=== PATIENT | female | born 1985 | race Asian ===

== ENCOUNTER 2017-10-16 11:57 | Emergency (ER) | payer MEDICAID, OTHER ==
[~2017-10-16] VITALS: Ht 162.6 cm; Wt 44.4 kg
[~2017-10-16 11:57] MED LIST: [UNRECOGNIZED DRUG - OTHER] IVPB
[2017-10-16 12:10] VITALS: Ht 162.6 cm; Wt 44.4 kg
[2017-10-16] MEDS ORDERED: HYDROCODONE/APAP (5/325) TAB PO ONE (14:30)
--- NOTE | 2017-10-16 14:47 | ERD ---
ER Documentation Chief Complaint Chief Complaint abdominal pain x10 (intermittent) HPI This is a 32-year-old female who presents emergency department today complaining of intermittent abdominal pain for the past 10 days. She states that it went away for a while and then returned. Denies any dysuria, fevers or chills, vomiting. States that she only has pain but has not taken any medication because "she does not know what it is". She is currently on her menstrual cycle. ROS All systems reviewed and are negative except as per history of present illness. Medications Home Meds Active Scripts Acetaminophen* (Tylophen*) 500 Mg Capsule, 1 CAP PO Q6H Y for PAIN AND OR ELEVATED TEMP, #30 CAP Prov:JAMARCUS CARLTON PA-C 10/16/17 Ibuprofen* (Motrin*) 600 Mg Tab, 600 MG PO Q6, #30 TAB Prov:JAMARCUS CARLTON PA-C 10/16/17 Ertapenem Sodium* (Invanz*) 1 G/Vial Vial, 1 GM IVPB Q24H for 10 Days, VIAL DILUTE IN NS Prov:VARUN DARDEN 09/05/14 Allergies Allergies: Coded Allergies: No Known Allergy (Unverified , 08/20/14) PMhx/Soc History of Surgery: Yes ( 08/26/14) Anesthesia Reaction: No Hx Neurological Disorder: No Hx Respiratory Disorders: No Hx Cardiac Disorders: No Hx Psychiatric Problems: No Hx Miscellaneous Medical Probl: No Hx Alcohol Use: No Hx Substance Use: No Hx Tobacco Use: No Smoking Status: Never smoker Physical Exam Vitals Vital Signs Date Time Temp Pulse Resp B/P Pulse Ox O2 Delivery O2 Flow Rate FiO2 10/16/17 12:10 97.8 100 18 115/81 98 Physical Exam Const: non toxic appearing Head: Atraumatic Eyes: Normal Conjunctiva ENT: Normal External Ears, Nose and Mouth. Neck: Full range of motion..~ No meningismus. Resp: Clear to auscultation bilaterally Cardio: Regular rate and rhythm, no murmurs Abd: Soft,periumbilical and right lower quadrant tenderness non distended. Normal bowel sounds Skin: No petechiae or rashes Back: No midline or flank tenderness Ext: No cyanosis, or edema Neur: Awake and alert Psych: Normal Mood and Affect Result Diagram: 10/16/17 1443 10/16/17 1443 Results 24 hrs Laboratory Tests Test 10/16/17 14:40 10/16/17 14:43 Urine Color STRAW Urine Clarity CLEAR Urine pH 7.0 Urine Specific [place] 1.006 Urine Ketones NEGATIVEmg/dL Urine Nitrite NEGATIVEmg/dL Urine Bilirubin NEGATIVEmg/dL Urine Urobilinogen NEGATIVEmg/dL Urine Leukocyte Esterase NEGATIVELeu/ul Urine Microscopic RBC 1/HPF Urine Microscopic WBC 0/HPF Urine Hemoglobin 2+mg/dL Urine Glucose NEGATIVEmg/dL Urine Total Protein NEGATIVEmg/dl White Blood Count 8.210^3/ul Red Blood Count 4.8210^6/ul Hemoglobin 13.9g/dl Hematocrit 43.0% Mean Corpuscular Volume 89.2fl Mean Corpuscular Hemoglobin 28.8pg Mean Corpuscular Hemoglobin Concent 32.3g/dl Red Cell Distribution Width 11.9% Platelet Count 81704^3/UL Mean Platelet Volume 9.9fl Neutrophils % 69.5% Lymphocytes % 23.9% Monocytes % 5.3% Eosinophils % 0.4% Basophils % 0.5% Nucleated Red Blood Cells % 0.0/100WBC Neutrophils # 5.710^3/ul Lymphocytes # 2.010^3/ul Monocytes # 0.410^3/ul Eosinophils # 0.010^3/ul Basophils # 0.010^3/ul Nucleated Red Blood Cells # 0.010^3/ul Sodium Level 144mmol/L Potassium Level 3.8mmol/L Chloride Level 109mmol/L Carbon Dioxide Level 22mmol/L Anion Gap 17 Blood Urea Nitrogen 10mg/dl Creatinine 0.69mg/dl Glucose Level 85mg/dl Calcium Level 10.0mg/dl Total Bilirubin 0.6mg/dl Direct Bilirubin 0.00mg/dl Indirect Bilirubin 0.6mg/dl Aspartate Amino Transf (AST/SGOT) 21IU/L Alanine Aminotransferase (ALT/SGPT) 32IU/L Alkaline Phosphatase 71IU/L Total Protein 8.3g/dl Albumin 4.8g/dl Globulin 3.50g/dl Albumin/Globulin Ratio 1.37 Lipase 57U/L Current Medications Medications (Trade) Dose Ordered Sig/Diaz Route PRN Reason Start Time Stop Time Status Last Admin Dose Admin Acetaminophen/ Hydrocodone Bitart (Eagle (5/325)) 1 tab ONCE ONCE PO 10/16/17 14:30 10/16/17 14:31 DC 10/16/17 14:39 DIAGNOSTIC IMAGING REPORT Patient: TAMARA ONEILL : 1985 Age: 32 Sex: F [id number] DOS: 10/16/17 1410 Ordering MD: JAMARCUS CARLTON PA-C Location: E Room/Bed: PROCEDURE: CT ABDOMEN AND PELVIS WITHOUT CONTRAST. CLINICAL INDICATION: Abdominal pain TECHNIQUE: CT scan of the abdomen and pelvis without contrast was performed on a multidetector high-resolution CT scanner. The patient was scanned without intravenous contrast. Coronal and sagittal reformatted images were obtained from the axial source images. Images were reviewed on a high-resolution PACS workstation. The total exam CTDI equals 4.1 mGy and the total exam DLP equals 228 mGy-cm. One or more of the following dose reduction techniques were used: Automated exposure control. Adjustment of the mA and/or kV according to patient size. Use of iterative reconstruction technique. DICOM images are available COMPARISON: None FINDINGS: CT abdomen: The lung bases are clear. The heart size is within limits. There is no significant pericardial effusion. Hepatic morphology is within normal limits. No gross contour deforming masses. The gallbladder is within normal limits. No evidence of intrahepatic or extrahepatic biliary dilatation. The spleen and pancreas are within normal limits. Both adrenal glands are within normal limits. Both kidneys are in normal anatomic position. No evidence of obstruction or hydronephrosis. No gross renal/ureteric calculi. The visualized GI tract demonstrate normal caliber loops of small and large bowel. No evidence of bowel obstruction. The appendix is within normal limits. The unenhanced aorta is unremarkable. No significant retroperitoneal lymphadenopathy. CT pelvis: The bladder is is identified, with thickening of the haley. The uterus otherwise appears to be within normal limits. The rectosigmoid colon is within normal limits. No significant free fluid. No pelvic lymphadenopathy. IMPRESSION: 1. No evidence of bowel obstruction. The appendix is within normal limits. 2. Thickening of the wall of the bladder, which may be secondary to infectious versus inflammatory cystitis. Recommend correlation with urinalysis. 3. No free fluid or free air. No gross focal fluid collections. Remainder of the unenhanced CT scan abdomen/pelvis is unremarkable. RPTAT: AAPP Physician Kelsey Date Time Electronically viewed and signed by Physician Kelsey on 10/16/2017 15:10 JL/ CC: JAMARCUS CARLTON PA-C Procedures/MDM This is a 32-year-old female who presents the emergency department today complaining of intermittent abdominal pain for the past 10 days worse over the past couple of days. On physical exam patient has periumbilical right lower quadrant tenderness. Patient has no other symptoms however given her location of pain I did obtain laboratory workup as well as imaging. Laboratory workup shows no other white blood cell count. She is not anemic. Platelets are within normal limits. Electrolytes are within normal limits. Glucose is within normal limits. Liver enzymes are within normal limits. Lipase within normal limits. UA is negative for infection Urine test is negative Urine was sent for culture given CT results CT abdomen pelvis non contrast shows no evidence of bowel obstruction. Appendix is within normal limits. There is thickening of the wall of the bladder which may be secondary to infectious versus inflammatory cystitis. There is no free fluid or free air. Patient was given Eagle for pain Patient has abdominal pain of uncertain etiology. Low suspicion for acute surgical abdomen. Patient is afebrile and otherwise well-appearing. She has no other symptoms. Patient was given a prescription for Tylenol Motrin for home. Patient was instructed to follow-up with a primary care doctor for referral to urology specialist to further evaluate her bladder. I will not treat her for urinary tract infection at this time is there is no evidence of it. At this time the patient is stable for discharge and outpatient management. Patient should follow up with their PCP in the next 1-2 days. They may return to the emergency department sooner for any persistent or worsening of symptoms. Patient understood and agreed with the plan. Discussed the patient with Dr. Mills and he is in agreement with the plan. Departure Diagnosis: Primary Impression: Abdominal pain Abdominal location: periumbilical Qualified Code: R10.33 - Periumbilical abdominal pain Condition: Fair MYLENE CARLTONH M. PA-C Oct 16, 2017 14:47
[2017-10-16 14:50] LABS: ADD UMIC YES; UR ASCORBIC ACID NEGATIVE (NEGATIVE); UR BILIRUBIN (Dip) NEGATIVE (NEGATIVE); UR BLOOD (Dip) 2+ mg/dL (NEGATIVE); UR CLARITY CLEAR (CLEAR); UR COLOR STRAW (YELLOW); UR GLUCOSE (Dip) NEGATIVE (NEGATIVE); UR KETONES (Dip) NEGATIVE (NEGATIVE); UR LEUKOCYTE ESTERASE (Dip) NEGATIVE Leu/ul (NEGATIVE); UR NITRITE (Dip) NEGATIVE (NEGATIVE); UR RBC 1 /HPF (0-5); UR SPECIFIC GRAVITY (Dip) 1.006 (1.003-1.030); UR TOTAL PROTEIN (Dip) NEGATIVE (NEGATIVE); UR UROBILINOGEN (Dip) NEGATIVE (NEGATIVE)
[2017-10-16 14:56] LABS: BASOPHILS % 0.5 % (0.0-2.0); EOSINOPHILS % 0.4 % (0.0-7.0); HEMOGLOBIN 13.9 g/dl (12.0-16.0); LYMPHOCYTES % 23.9 % (15.0-51.0); MEAN CORPUSCULAR HEMOGLOBIN 28.8 pg (29.0-33.0); MEAN CORPUSCULAR HGB CONC 32.3 g/dl (32.0-37.0); MEAN CORPUSCULAR VOLUME 89.2 fl (82.0-101.0); MEAN PLATELET VOLUME 9.9 fl (7.4-10.4); MONOCYTE # 0.4 10^3/ul (0.3-0.9); MONOCYTES % 5.3 % (0.0-11.0); NEUTROPHIL # 5.7 10^3/ul (1.6-7.5); NEUTROPHILS % 69.5 % (39.0-77.0); PLATELET COUNT 297 10^3/UL (140-415); RED BLOOD COUNT 4.82 10^6/ul (4.20-5.40); RED CELL DISTRIBUTION WIDTH 11.9 % (11.5-14.5); WHITE BLOOD COUNT 8.2 10^3/ul (4.8-10.8)
--- NOTE | 2017-10-16 15:10 | RADRPT ---
PROCEDURE: CT ABDOMEN AND PELVIS WITHOUT CONTRAST. CLINICAL INDICATION: Abdominal pain TECHNIQUE: CT scan of the abdomen and pelvis without contrast was performed on a multidetector hig h-resolution CT scanner. The patient was scanned without intravenous contrast. Coronal and sagittal reformatted images were obtained from the axial source images. Images were reviewed on a high-resol iMove PACS workstation. The total exam CTDI equals 4.1 mGy and the total exam DLP equals 228 mGy-cm. One or more of the following dose reduction techniques were used: Automated exposure control. Adjustment of the mA and/or kV according to patient size. Use of iterative reconstruction technique. DICOM images are available COMPARISON: None FINDINGS: CT abdomen: The lung bases are clear. The heart size is within limits. There is no significant pericardial effus ion. Hepatic morphology is within normal limits. No gross contour deforming masses. The gallbladder is wi thin normal limits. No evidence of intrahepatic or extrahepatic biliary dilatation. The spleen and pancreas are within normal limits. Both adrenal glands are within normal limits. Both kidneys are in normal anatomic position. No evidence of obstruction or hydronephrosis. No gross renal/ureteric calculi. The visualized GI tract demonstrate normal caliber loops of small and large bowel. No evidence of dmitri wel obstruction. The appendix is within normal limits. The unenhanced aorta is unremarkable. No significant retroperitoneal lymphadenopathy. CT pelvis: The bladder is is identified, with thickening of the haley. The uterus otherwise appears to be withi n normal limits. The rectosigmoid colon is within normal limits. No significant free fluid. No pelvi c lymphadenopathy. IMPRESSION: 1. No evidence of bowel obstruction. The appendix is within normal limits. 2. Thickening of the wall of the bladder, which may be secondary to infectious versus inflammatory c ystitis. Recommend correlation with urinalysis. 3. No free fluid or free air. No gross focal fluid collections. Remainder of the unenhanced CT scan abdomen/pelvis is unremarkable. RPTAT: AAPP Physician Kelsey Date Time Electronically viewed and signed by Physician Kelsey on 10/16/2017 15:10 JL/
[2017-10-16 15:18] LABS: ALBUMIN 4.8 g/dl (3.3-4.9); ALBUMIN/GLOBULIN RATIO 1.37; BILIRUBIN,INDIRECT 0.6 mg/dl (0-1.1); BILIRUBIN,TOTAL 0.6 mg/dl (0.2-1.3); CREATININE 0.69 mg/dl (0.44-1.00); POTASSIUM 3.8 mmol/L (3.5-5.1); TOTAL PROTEIN 8.3 g/dl (6.1-8.1)
[2017-10-16] MEDS ORDERED: ACET500C5 PO (16:04)
[2017-10-16] MEDS ORDERED: IBUP-1542 PO (16:04)
[2017-10-16 16:34] VITALS: BP 126/86; PULSE 87; RESP 18; TEMP 98.8
== END 2017-10-16 16:34 | disposition home or self-care (01) ==
LOC: FTE 11:57
DX: R10.33 Periumbilical pain (principal); R10.2 Pelvic and perineal pain
CPT/HCPCS: 36415; 74176; 80053; 81001; 83690; 85025; 87086; Z7502; Z7610

== ENCOUNTER 2019-06-12 20:15 | Outpatient (CLI) | payer OTHER ==
[~2019-06-12] VITALS: Ht 167.6 cm; Wt 49.3 kg
[~2019-06-12 20:15] MED LIST changes: +ACET500C5 PO; +IBUP-1542 PO
--- NOTE | 2019-06-12 20:54 | HP ---
Date/Time of Note Date/Time of Note DATE: 06/12/19 TIME: 20:52 OB - History Hx of Present Free Text/Dictation 33-year-old 2 para 1 with at 32 weeks and 4 days with due date August 03, 2019 who presents to labor and delivery due to loss of fluid per vagina only one time at 5 PM today. She denies loss of fluid per vagina since then. She denies uterine contractions cramping abdominal pain or vaginal bleeding. She reports good movements. She has history of previous delivery at full-term. Past Family/Social History * Past Medical, Surgical, Family and Obstetric Histories reviewed from chart. OB Admission Exam Physical Exam HEENT: WNL Heart: Rhythm Normal Lungs: Clear, Equal Abdomen: WNL Extremities: Normal Reflexes: Normal OB Assessment/Plan Other Assessment: at 32 weeks and 4 days rule out premature rupture of membrane Other plan: Plan is a speculum exam check nitrazine check ROM plus ultrasound for YULIYA and EFW due to fundal height is smaller than gestational age MCKENZIE DAVEY MD Jun 12, 2019 20:54
[2019-06-12 21:34] VITALS: BP 105/63; PULSE 85; RESP 17; Ht 167.6 cm; Wt 49.3 kg
--- NOTE | 2019-06-12 22:30 | TRIAGE ---
OB Triage Datetime Report Generated by CPN: 06/12/2019 22:30 Datetime: 06/12/2019 22:05 Contraction Comments: TOCO REMOVED Comments: US REMOVED Datetime: 06/12/2019 22:00 Labor Evaluation Frequency: OCCASIONAL Monitor Mode: External Duration (sec)2399: 60-80 Quality: Mild Resting Tone [place]: Relaxed Contraction Comments: PT DENIES FEELING UC'S Heart Rate FHR Baseline Rate: 140 Monitor Mode: External US Variability: Moderate 6-25 bpm Accelerations: 15X15 Decelerations: None Category: Category I Datetime: 06/12/2019 21:00 Labor Evaluation Frequency: OCCASIONAL Monitor Mode: External Duration (sec)2399: 60 Quality: Mild Resting Tone [place]: Relaxed Contraction Comments: PT DOES NOT FEEL UC'S Heart Rate FHR Baseline Rate: 145 Monitor Mode: External US Variability: Moderate 6-25 bpm Accelerations: 15X15 Decelerations: None Category: Category I Datetime: 06/12/2019 20:55 Vaginal Exam Pool: Negative Nitrazine: Negative Datetime: 06/12/2019 20:40 Stage of : OB Triage Assessment Type: Triage Maternal Assessment Level of Consciousness: Keenly Alert, Responsive DTR's/Clonus: DTRs 2+; No Clonus Headache: Denies Blurred Vision: No Respiratory Effort: Unlabored; Regular Rhythm; Equal Expansion Breath Sounds, Left: Clear and Equal Breath Sounds, Right: Clear and Equal Nausea/Vomiting: Denies RUQ Epigastric Pain: Denies Lower Extremities Edema: None Degree: None Upper Extremities Edema: None Degree: None Facial Edema: None Temperature Route: Oral Fall Risk Assessment History of Falling: (0) No Secondary Diagnosis: (0) No Ambulatory Aid: (0) Bedrest/Nurse Assist IV Therapy: (0) No Gait: (0) Normal/Bedrest/Immobile Mental Status: (0) Oriented to Own Ability Fall Score: 0 Fall Risk Score Definition: No Risk: No action required Pain Assessment Pain Scale: 0 Pain Presence: None/Denies Pain Type: N/A Datetime: 06/12/2019 20:32 Time of Arrival: 06/12/2019 20:05 EGA: 32.4 Arrived By: Ambulatory Arrived From: Emergency Dept Chief Complaint: LEAKING Movement: Present Contractions: Denies/Absent Rupture of Membranes: Unsure Vaginal Discharge: Present Recent Sexual Intercouse: Denies Abdominal Trauma: Not Applicable Patient Complaints: Other Initial Plan: EFM
== END 2019-06-12 22:20 | disposition home or self-care (01) ==
LOC: OBT 20:15 → L-D 20:18 → OBT 22:20
PROVIDERS: ATTEND Specialist
DX: O60.03 Preterm labor without delivery, third trimester (principal); Z3A.32 32 weeks gestation of pregnancy
CPT/HCPCS: 76815; 76818; 84112; Z7500; G0463

== ENCOUNTER 2019-07-19 12:29 | Inpatient (IN) | payer OTHER ==
[~2019-07-19] VITALS: Ht 167.6 cm; Wt 49.4 kg
[2019-07-19 12:56] VITALS: Ht 167.6 cm; Wt 49.4 kg
[2019-07-19 12:57] VITALS: BP 114/65; PULSE 114; RESP 18
[2019-07-19] MEDS ORDERED: MISOPROSTOL 200 MCG TAB PR PRN ×2 (13:30→21:30)
[2019-07-19] MEDS ORDERED: METHYLERGONOVINE 0.2 MG INJ IM PRN ×2 (13:30→21:30)
[2019-07-19] MEDS ORDERED: CARBOPROST 250 MCG INJ IM PRN ×2 (13:30→21:30)
[2019-07-19] MEDS ORDERED: OXYTOCIN 30 UNITS/LR 500 ML IV PRN ×2 (13:30→21:30)
[2019-07-19] MEDS ORDERED: CEFAZOLIN 2 GM/50 ML (PMX) 50 ML IVPB SCH (13:30)
[2019-07-19] MEDS ORDERED: OXYTOCIN 30 UNITS/LR 500 ML IV SCH ×2 (13:30→21:15)
[2019-07-19] MEDS: LACTATED RINGER'S 1,000 ML IV SCH ×2 (14:03→16:16)
[2019-07-19] MEDS ORDERED: morphine SULFATE/PF (10 MG/10 ML) INJ ONE (16:45)
[2019-07-19] MEDS ORDERED: FENTAnyl 50 MCG/ML VIAL ONE (16:45)
[2019-07-19] MEDS ORDERED: DEXAMETHASONE 4 MG/ML 1 ML INJ ONE (16:49)
[2019-07-19] MEDS ORDERED: PHENYLephrine (100 MCG/ML) 10ML SYG ONE (16:49)
[2019-07-19] MEDS ORDERED: ONDANSETRON 4 MG INJ ONE (16:50)
[2019-07-19] MEDS ORDERED: HYDROmorphONE 0.5 MG/0.5 ML SYG IV PRN ×2 (18:00)
[2019-07-19] MEDS ORDERED: KETOROLAC 30 MG INJ IV PRN (18:00)
[2019-07-19] MEDS ORDERED: ONDANSETRON 4 MG INJ IV PRN ×2 (18:00→21:30)
[2019-07-19] MEDS ORDERED: DIPHENHYDRAMINE 50 MG INJ IV PRN ×2 (18:00→21:30)
[2019-07-19] MEDS ORDERED: ZOLPIDEM 5 MG TAB PO PRN ×2 (18:00→21:30)
[2019-07-19] MEDS ORDERED: NALOXONE (0.4 MG/ML) INJ IV PRN (18:00)
[2019-07-19 21:15] VITALS: BP 110/69; PULSE 70; RESP 18
[2019-07-19] MEDS ORDERED: LACTATED RINGER'S 1,000 ML IV SCH (21:15)
[2019-07-19] MEDS ORDERED: OXYCODONE/ACETAMINOPHEN (5/325) TAB PO PRN (21:30)
[2019-07-19] MEDS ORDERED: LANOLIN HPA 1 PKT TOP PRN (21:30)
[2019-07-19 21:45] VITALS: BP 112/70; PULSE 72; RESP 20
[2019-07-20 00:16] VITALS: BP 111/53; PULSE 66; RESP 18
[2019-07-20 04:35] VITALS: BP 96/56; PULSE 75; RESP 18
[2019-07-20] MEDS: IBUPROFEN 600 MG TAB PO SCH ×5 (06:00→23:49)
[2019-07-20] MEDS ORDERED: LACTATED RINGER'S 1,000 ML IV SCH (07:30)
[2019-07-20 07:50] VITALS: BP 99/66; PULSE 72; RESP 16
[2019-07-20] MEDS: SENNA/DOCUSATE NA (8.6MG/50MG) TAB PO SCH ×2 (09:17→22:22)
[2019-07-20 16:06] VITALS: BP 112/68; PULSE 84; RESP 17
[2019-07-20] MEDS: ASCORBIC ACID 500 MG TAB PO SCH (17:14)
[2019-07-20] MEDS: FERROUS SULFATE (EC) 325 MG TAB PO SCH (17:14)
[2019-07-20] MEDS: OXYCODONE/ACETAMINOPHEN (5/325) TAB PO PRN (17:59)
[2019-07-20 20:04] VITALS: BP 101/63; PULSE 78; RESP 20
[2019-07-21 04:20] VITALS: BP 116/70; PULSE 51; RESP 20
[2019-07-21] MEDS: IBUPROFEN 600 MG TAB PO SCH ×4 (05:44→23:34)
[2019-07-21 07:30] VITALS: BP 110/68; PULSE 74; RESP 16
[2019-07-21] MEDS: SENNA/DOCUSATE NA (8.6MG/50MG) TAB PO SCH ×2 (08:42→21:45)
[2019-07-21] MEDS: FERROUS SULFATE (EC) 325 MG TAB PO SCH (08:42)
[2019-07-21] MEDS: ASCORBIC ACID 500 MG TAB PO SCH (10:18)
[2019-07-21] MEDS: OXYCODONE/ACETAMINOPHEN (5/325) TAB PO PRN (15:12)
[2019-07-21 15:31] VITALS: BP 126/83; PULSE 98; RESP 17
[2019-07-21 20:15] VITALS: BP 114/72; PULSE 71; RESP 18
[2019-07-22 04:00] VITALS: BP 109/75; PULSE 80; RESP 18
[2019-07-22] MEDS: IBUPROFEN 600 MG TAB PO SCH ×2 (05:44→13:17)
[2019-07-22 08:30] VITALS: BP 111/70; PULSE 68; RESP 18
[2019-07-22] MEDS ORDERED: DIPHTH/TET/ACEL PERTUSS (ADULT) 0.5 ML VIAL IM* ONE (09:00)
[2019-07-22] MEDS: OXYCODONE/ACETAMINOPHEN (5/325) TAB PO PRN (09:27)
[2019-07-22] MEDS: FERROUS SULFATE (EC) 325 MG TAB PO SCH (09:27)
[2019-07-22] MEDS: ASCORBIC ACID 500 MG TAB PO SCH (09:27)
[2019-07-22] MEDS: SENNA/DOCUSATE NA (8.6MG/50MG) TAB PO SCH (09:27)
== END 2019-07-22 16:22 | disposition home or self-care (01) | DRG 786 ==
LOC: OBT 12:29 → L-D 12:30 → OBT 13:10 → L-D 17:04 → MS1 21:06 → PP1 07-20 20:59
PROVIDERS: ADMIT Specialist; ATTEND Specialist
PROC: 10D00Z1 Extraction of Products of Conception, Low, Open Approach (ICD-10-PCS; principal; 2019-07-19 14:00)
DX: O26.613 Liver and biliary tract disorders in pregnancy, third trimester (principal); K83.1 Obstruction of bile duct; Z3A.37 37 weeks gestation of pregnancy; Z37.0 Single live birth; O34.211 Maternal care for low transverse scar from previous cesarean delivery; O69.1XX0 Labor and delivery complicated by cord around neck, with compression, not applicable or unspecified
CPT/HCPCS: 85025; 85610; 85730; 86592; 86850; 86900; 86901; 87340; 99464; G0463; J0690; J1100; J1885; J2274; J2370; J2405; J2590; J3010; J7120